=== PATIENT | male | born 1950 | race Caucasian/White ===

== ENCOUNTER 2020-08-31 08:06 | Day surgery (SDC) | payer MEDICARE ==
[~2020-08-31] VITALS: Ht 172.7 cm; Wt 96.0 kg
[~2020-08-31 08:06] MED LIST: ASCO500 PO; ASPIR 8181 M1; ASPIR 8181 M1 PO; BUDESONIDE-FO10.2 G2 INH; ENALAPRIL MALEA PO; FLONASE ALLERG9.9 M2 INH; GLIP5ER; HYDCHL25 PO; METF500 PO; PIOG15 PO; VITAMIN D325 MC3 PO; ZOCOR20 MG PO
== END 2020-08-31 09:50 | disposition home or self-care (01) ==
LOC: ORSCSDS 08:06
PROVIDERS: Internal Medicine Gastroenterology
PROC: 0DB58ZX Excision of Esophagus, Via Natural or Artificial Opening Endoscopic, Diagnostic (ICD-10-PCS; principal; 2020-08-31 09:15)
PROC: 0DB68ZX Excision of Stomach, Via Natural or Artificial Opening Endoscopic, Diagnostic (ICD-10-PCS; principal; 2020-08-31 09:15)
DX: K74.60 Unspecified cirrhosis of liver (principal); K76.0 Fatty (change of) liver, not elsewhere classified; K21.9 Gastro-esophageal reflux disease without esophagitis; E11.9 Type 2 diabetes mellitus without complications; K44.9 Diaphragmatic hernia without obstruction or gangrene; Z79.82 Long term (current) use of aspirin; Z79.899 Other long term (current) drug therapy
CPT/HCPCS: 82947; 88305; 88342; J2704; J7120

== ENCOUNTER 2022-08-12 11:33 | Day surgery (SDC) | payer MEDICARE ==
[~2022-08-12] VITALS: Ht 172.7 cm; Wt 93.2 kg
[~2022-08-12 11:33] MED LIST changes: +AFRIN15 M6; +ALOGLIPTIN25 M1 PO; +COLE625 PO; +FISH OIL 1,2001 EAC7 PO; -GLIP5ER; +GLIP5ER PO; +JANUMET 50-1,01 EACH PO; +METO25ER PO; +OMEP20ER PO
[2022-08-12] MEDS ORDERED: LANS30EC PO (11:52)
[2022-08-12] MEDS ORDERED: PIOG30 PO (11:53)
[2022-08-12] MEDS ORDERED: ENAL10 PO (11:53)
[2022-08-12] MEDS ORDERED: METO25ER PO (11:53)
[2022-08-12] MEDS ORDERED: HYDCHL12.5 PO (11:53)
[2022-08-12] MEDS ORDERED: Omeprazole20 M1 PO (11:53)
[2022-08-12] MEDS ORDERED: JANUMET PO (11:54)
[2022-08-12] MEDS ORDERED: ZOCOR20 MG PO (11:54)
[2022-08-12] MEDS ORDERED: ASPI81CH PO (11:54)
[2022-08-12] MEDS ORDERED: FISH OIL 1,2001 EAC4 PO (11:55)
[2022-08-12] MEDS ORDERED: JARDIANCE10 MG PO (11:55)
[2022-08-12] MEDS ORDERED: C COMPLEX1000 M1 PO (11:55)
[2022-08-12] MEDS ORDERED: CINNAMON EXTRA500 MG PO (11:56)
[2022-08-12] MEDS ORDERED: GLUC500 PO (11:56)
== END 2022-08-12 13:38 | disposition home or self-care (01) ==
LOC: ORSCSDS 11:33
PROVIDERS: Internal Medicine Gastroenterology
PROC: 0DBL8ZX Excision of Transverse Colon, Via Natural or Artificial Opening Endoscopic, Diagnostic (ICD-10-PCS; principal; 2022-08-12 12:45)
DX: Z12.11 Encounter for screening for malignant neoplasm of colon (principal); Z86.010 Personal history of colon polyps; Z80.0 Family history of malignant neoplasm of digestive organs; D12.3 Benign neoplasm of transverse colon; K57.30 Diverticulosis of large intestine without perforation or abscess without bleeding; K64.4 Residual hemorrhoidal skin tags; I10 Essential (primary) hypertension; J45.909 Unspecified asthma, uncomplicated; E11.9 Type 2 diabetes mellitus without complications; G47.33 Obstructive sleep apnea (adult) (pediatric); K74.60 Unspecified cirrhosis of liver; K75.81 Nonalcoholic steatohepatitis (NASH); Z79.899 Other long term (current) drug therapy; Z79.84 Long term (current) use of oral hypoglycemic drugs
CPT/HCPCS: 82947; 88305; J2704; J7120

== ENCOUNTER → 2023-08-07 | Outpatient (CLI) | payer MEDICARE ==
[~2023-08-07] MED LIST changes: +ASPI81CH PO; +C COMPLEX1000 M1 PO; +CINNAMON EXTRA500 MG PO; +ENAL10 PO; +FISH OIL 1,2001 EAC4 PO; +GLUC500 PO; +HYDCHL12.5 PO; +JANUMET PO; +JARDIANCE10 MG PO; +LANS30EC PO; +Omeprazole20 M1 PO; +PIOG30 PO
== END | disposition home or self-care (01) ==
LOC: LAB SHORT 08:11 → LAB 08:11
DX: D48.5 Neoplasm of uncertain behavior of skin (principal)
CPT/HCPCS: 88305

== ENCOUNTER 2024-01-16 07:39 | Day surgery (SDC) | payer MEDICARE ==
[~2024-01-16] VITALS: Ht 170.2 cm; Wt 93.5 kg
[~2024-01-16 07:39] MED LIST changes: +Lactated Ringer's 1,000 ML IV ONE; +propofoL 50 ML IV ONE
[2024-01-16] MEDS ORDERED: Lactated Ringer's 1,000 ML IV ONE (08:20)
[2024-01-16 09:39] VITALS: BP 117/80
== END 2024-01-16 09:31 | disposition home or self-care (01) ==
LOC: ORSCSDS 07:39
PROVIDERS: Internal Medicine Gastroenterology
PROC: 0DJ08ZZ Inspection of Upper Intestinal Tract, Via Natural or Artificial Opening Endoscopic (ICD-10-PCS; principal; 2024-01-16 09:00)
DX: K74.69 Other cirrhosis of liver (principal); K76.0 Fatty (change of) liver, not elsewhere classified; Z13.810 Encounter for screening for upper gastrointestinal disorder; K21.9 Gastro-esophageal reflux disease without esophagitis; E11.9 Type 2 diabetes mellitus without complications; I10 Essential (primary) hypertension; J45.909 Unspecified asthma, uncomplicated; Z79.82 Long term (current) use of aspirin; Z79.84 Long term (current) use of oral hypoglycemic drugs; Z79.899 Other long term (current) drug therapy
CPT/HCPCS: 82947; J2704; J7120

== ENCOUNTER 2024-06-05 08:16 | Day surgery (SDC) | payer OTHER ==
[~2024-06-05] VITALS: Ht 172.7 cm; Wt 95.4 kg
[~2024-06-05 08:16] MED LIST changes: +8 HOUR ACETAMI650 MG PO; +ALBU90OI INH; +Aspir 8181 MG PO; +FLONASE ALLERG9.9 M2; +GLIP10 PO; +GLUCOSAMINE COMPLEX PO; +GLUCOSAMINE-CH1 EA48 PO; +JARDIANCE25 MG PO; -Lactated Ringer's 1,000 ML IV ONE; +MAGNESIUM250 M1 PO; +MULTI-VITAMIN1 EAC2 PO; +OMEGA-3 FISH O1 EAC6 PO; +PRILOSEC PO; +Simvastatin10 MG PO; +Vitamin D1000 UNI1 PO; -propofoL 50 ML IV ONE
[2024-06-05] MEDS ORDERED: ATOR20 PO (08:47)
[2024-06-05] MEDS ORDERED: Lactated Ringer's 1,000 ML IV ONE (09:15)
[2024-06-05] MEDS ORDERED: CeFAZolin Sodium 2,000 MG VIAL ONE (09:45)
[2024-06-05] MEDS ORDERED: Lidocaine 2%-Epineph 1:100000 20 ML MDV ONE (10:00)
[2024-06-05] MEDS ORDERED: EPINEPhrine HCl 1 MG/ML 1ML Amp ONE (10:00)
[2024-06-05] MEDS ORDERED: propofoL 100 ML IV ONE (10:12)
[2024-06-05] MEDS ORDERED: propofoL 20 ML IV ONE (10:15)
[2024-06-05] MEDS ORDERED: FentaNYL Citrate 50 MCG/ML 2 ML Injection ONE (10:15)
[2024-06-05] MEDS ORDERED: ePHEDrine Sulfate 50 MG/ML 1ML Injection ONE (10:16)
[2024-06-05] MEDS ORDERED: Ketorolac Tromethamine 30mg Vial ONE (10:32)
[2024-06-05] MEDS ORDERED: Ondansetron HCl 2 MG / ML 2ML Vial ONE (10:32)
[2024-06-05] MEDS ORDERED: Dexamethasone Sod Phos 10 MG/ML 1ML VIAL ONE (10:32)
[2024-06-05 11:46] VITALS: BP 151/89
--- NOTE | 2024-06-05 11:46 | NUR ---
06/05/24 1146 Katie Cardona PT TRANSFERS TO SDU. PT DENIES PAIN/NAUSEA. VSS, ON RA. PT SITTING UP IN CART W/O COMPLAINT. PT BELONGINGS BROUGHT BACK TO BEDSIDE. NO VISIBLE SIGNS OF DISTRESS NOTED.
[2024-06-08 13:07] LABS: HEPATITIS B SURFACE ANTIGEN Negative (Negative)
[2024-06-10 07:01] LABS: HCV QNT BY NAAT (IU/ML) Not Detected; HCV QNT BY NAAT (LOG IU/ML) Not Detected; HCV QNT BY NAAT INTERP Not Detected (Not Detected)
== END 2024-06-05 12:40 | disposition home or self-care (01) ==
LOC: ORSCSDS 08:16
PROVIDERS: Orthopaedic Surgery
PROC: 0SBC4ZZ Excision of Right Knee Joint, Percutaneous Endoscopic Approach (ICD-10-PCS; principal; 2024-06-05 09:45)
DX: S83.241D Other tear of medial meniscus, current injury, right knee, subsequent encounter (principal); E11.9 Type 2 diabetes mellitus without complications; J45.909 Unspecified asthma, uncomplicated; J44.9 Chronic obstructive pulmonary disease, unspecified; G47.33 Obstructive sleep apnea (adult) (pediatric); K21.9 Gastro-esophageal reflux disease without esophagitis; K75.81 Nonalcoholic steatohepatitis (NASH); E66.9 Obesity, unspecified; Z68.32 Body mass index [BMI] 32.0-32.9, adult; Z79.84 Long term (current) use of oral hypoglycemic drugs; Z79.899 Other long term (current) drug therapy; Z79.82 Long term (current) use of aspirin
CPT/HCPCS: 82947; 87340; 87522; J0171; J0690; J1100; J1885; J2405; J2704; J3010

== ENCOUNTER → 2024-08-26 | Outpatient (CLI) | payer MEDICARE ==
[~2024-08-26] MED LIST changes: +ATOR20 PO
== END ==
LOC: LAB 13:35 → LAB SHORT 13:35
DX: L03.114 Cellulitis of left upper limb (principal)
CPT/HCPCS: 87070; 87077; 87147; 87186; 87205

== ENCOUNTER 2025-01-28 05:54 | Day surgery (SDC) | payer MEDICARE ==
[~2025-01-28] VITALS: Ht 167.6 cm; Wt 93.6 kg
[2025-01-28] VITALS (9 sets, daily range): BP systolic 124–138; BP diastolic 76–87
[~2025-01-28 05:54] MED LIST changes: -PRILOSEC PO
[2025-01-28] MEDS ORDERED: CeFAZolin Sodium 2,000 MG in NS 100 ML IV SCH (06:20)
[2025-01-28] MEDS ORDERED: Bupivacaine 0.5% HCl 5 MG/ML 30MLVIAL ONE (06:56)
--- NOTE | 2025-01-28 07:03 | NUR ---
Pre-Op teaching done. Pt verbalizes understanding. Ambulatory in Day Surgery. History, Chart, Medications and Allergies reviewed before start of procedure. Patient States Post-Procedure ride home has been arranged. Patient confirms NPO status and agrees with scheduled surgery.
[2025-01-28] MEDS ORDERED: FentaNYL Citrate 50 MCG/ML 2 ML Injection ONE (07:30)
[2025-01-28] MEDS ORDERED: Dexamethasone Sod Phos 10 MG/ML 1ML VIAL ONE (07:43)
[2025-01-28] MEDS ORDERED: Ondansetron HCl 2 MG / ML 2ML Vial ONE (08:05)
[2025-01-28] MEDS ORDERED: HYDROcodone 5-APAP 325 TAB PO PRN (08:15)
[2025-01-28] MEDS ORDERED: Ketorolac Tromethamine 30mg Vial ONE (08:35)
--- NOTE | 2025-01-28 08:51 | NUR ---
REPORT RECEIVED FROM CHANDU CABRERA. VSS. PT ON RA. PT A&OX4. PT ABLE TO REPOSITION SELF IN BED. PT REQUESTING PO FLUIDS AND TOLERATING THEM WELL. PT HAS GAUZE/TEGADERM TO RIGHT CHEST THAT IS CDI. PT ALSO HAS GAUZE/TEGADERM TO RIGHT SIDE OF NECK THAT IS CDI. PT DENIES PAIN, NAUSEA OR OTHER DISCOMFORTS. PT SPOUSE AT BEDSIDE.
--- NOTE | 2025-01-28 09:13 | NUR ---
Patient up to Ambulate independently. Gait steady. VSS and consistent with pt baseline. Pt has no complaints and verbalizes readiness to go home. Mediport placement confirmed from imaging. Discharge instructions reviewed with patient and his spouse. Patient verbalizes understanding. Copy given to patient to take home. Dressing to procedure site clean, dry, intact with no visible drainage, swelling, erythema or bruising noted. Discharged via wheelchair to private car for ride home. Pt belongings returned to pt.
== END 2025-01-28 09:16 | disposition home or self-care (01) ==
LOC: ORSCMMR 05:54 → ORD 07:30 → ORSCMMR 07:30
DX: C07 Malignant neoplasm of parotid gland (principal); I10 Essential (primary) hypertension; G47.33 Obstructive sleep apnea (adult) (pediatric); K21.9 Gastro-esophageal reflux disease without esophagitis; K75.81 Nonalcoholic steatohepatitis (NASH); K74.60 Unspecified cirrhosis of liver; J45.909 Unspecified asthma, uncomplicated; E11.9 Type 2 diabetes mellitus without complications; E66.9 Obesity, unspecified; Z68.33 Body mass index [BMI] 33.0-33.9, adult; Z79.899 Other long term (current) drug therapy; Z79.85 Long-term (current) use of injectable non-insulin antidiabetic drugs
CPT/HCPCS: 77001; 82947; C1788; J0690; J1100; J1642; J1885; J2405; J2704; J3010; J7120